=== PATIENT | male | born 1970 | race Hispanic/Latino ===

== ENCOUNTER 2018-11-09 09:20 | Emergency (ER) | payer OTHER ==
[2018-11-09] MEDS ORDERED: MECLIZINE HCL 12.5 MG TAB ONE (10:05)
[2018-11-09] MEDS ORDERED: NA CHLORIDE 0.9% 1,000 ML ONE (10:05)
--- NOTE | 2018-11-09 10:05 | RAD REPORT ---
EXAM DESCRIPTION: CT - Head Brain Wo Cont - 11/09/2018 9:53 am CLINICAL HISTORY: headache, dizziness Headache, drowsiness COMPARISON: No comparisons TECHNIQUE: All CT scans are performed using dose optimization technique as appropriate and may inclu de automated exposure control or mA/KV adjustment according to patient size. FINDINGS: No intracranial hemorrhage, hydrocephalus or extra-axial fluid collection.No areas of brai n edema or evidence of midline shift. The paranasal sinuses and mastoids are clear. The calvarium is intact. IMPRESSION: No acute intracranial abnormality.
[2018-11-09 10:18] LABS: Absolute Lymphocytes (CBC) 1.4 K/uL (0.7-4.9); Absolute Monocytes 0.5 K/uL (0.1-1.3); Absolute Neutrophil 3.7 K/uL (1.8-8.0); Basophils % 1.1 % (0-1.3); Hematocrit 41.1 % (39.6-49.0); Lymphocytes % 24.7 % (15.3-44.8); MPV 9.3 fL (7.6-11.3); Monocytes % 8.9 % (3.3-12.3); RBC Red Blood Cell Count 4.63 M/uL (4.33-5.43)
[2018-11-09 10:24] LABS: BUN Blood Urea Nitrogen 18 mg/dL (7-18); Bicarbonate 32 mmol/L (21-32); Creatine Phosphokinase 753 U/L (39-308); Glucose Level 87 mg/dL (74-106); Potassium 3.8 mmol/L (3.5-5.1); Sodium Level 144 mmol/L (136-145); Troponin (Emerg Dept Use Only) < 0.02 ng/mL (0.0-0.045)
--- NOTE | 2018-11-09 10:32 | EDPHYS ---
Physician Documentation [facility] Name: Caleb Schmidt Age: 48 yrs Sex: Male : 1970 Arrival Date: 11/09/2018 Time: 09:23 Bed 18 Private MD: ED Physician Jose Mcghee HPI: 11/09 10:02 This 48 yrs old Male presents to ER via Ambulatory with complaints of rn Lightheadedness. 10:02 The patient presents with dizziness. Onset: The symptoms/episode began/occurred 3 rn day(s) ago. Modifying factors: The symptoms are alleviated by nothing, the symptoms are aggravated by changing position. Severity of symptoms: At their worst the symptoms were moderate in the emergency department the symptoms have improved. The patient has not experienced similar symptoms in the past. Reports 3 days of intermittent dizziness, worse with trying to stand up or change position, no fever/head injury, + assoc headache, . Historical: - Allergies: 09:49 No Known Allergies; sv - PMHx: 09:49 None; sv - PSHx: 09:49 None; sv - Immunization history:: Adult Immunizations up to date. - Ebola Screening: : No symptoms or risks identified at this time. - Family history:: not pertinent. - Social history:: Smoking status: Patient/guardian denies using tobacco. - Hospitalizations: : No recent hospitalization is reported. ROS: 10:02 Constitutional: Negative for fever, chills, and weight loss, Eyes: Negative for injury, rn pain, redness, and discharge, ENT: Negative for injury, pain, and discharge, Neck: Negative for injury, pain, and swelling, Cardiovascular: Negative for chest pain, palpitations, and edema, Respiratory: Negative for shortness of breath, cough, wheezing, and pleuritic chest pain, Abdomen/GI: Negative for abdominal pain, diarrhea, and constipation, MS/Extremity: Negative for injury and deformity, Skin: Negative for injury, rash, and discoloration, Neuro: Negative for weakness, numbness, tingling, and seizure. Exam: 10:02 Constitutional: This is a well developed, well nourished patient who is awake, alert, rn and in no acute distress. Head/Face: Normocephalic, atraumatic. Eyes: Pupils equal round and reactive to light, extra-ocular motions intact. Lids and lashes normal. Conjunctiva and sclera are non-icteric and not injected. Cornea within normal limits. Periorbital areas with no swelling, redness, or edema. Neck: Trachea midline, no thyromegaly or masses palpated, and no cervical lymphadenopathy. Supple, full range of motion without nuchal rigidity, or vertebral point tenderness. No Meningismus. Cardiovascular: Regular rate and rhythm. No pulse deficits. Respiratory: Lungs have equal breath sounds bilaterally, clear to auscultation. No increased work of breathing, no retractions or nasal flaring. Abdomen/GI: soft, non-tender Skin: Warm, dry with normal turgor. Normal color with no rashes, no lesions, and no evidence of cellulitis. MS/ Extremity: Pulses equal, no cyanosis. Neurovascular intact. Full, normal range of motion. Equal circumference. Neuro: Awake and alert, GCS 15, oriented to person, place, time, and situation. Cranial nerves II-XII grossly intact. Motor strength 5/5 in all extremities. Sensory grossly intact. Cerebellar exam normal. Normal gait. 10:30 ECG was reviewed by the Attending Physician. rn Vital Signs: 09:49 BP 133 / 95; Pulse 83; Resp 18; Temp 98.7; Pulse Ox 99% ; Pain 0/10; sv 10:13 BP 125 / 89; Pulse 77; Resp 18; Pulse Ox 99% ; sv MDM: 09:31 Patient medically screened. rn 10:31 Differential diagnosis: cardiac arrhythmia, generalized weakness, idiopathic dizziness, rn near-syncope, vertigo. Data reviewed: vital signs, nurses notes, lab test result(s), EKG, radiologic studies, CT scan, and as a result, I will discharge patient. Counseling: I had a detailed discussion with the patient and/or guardian regarding: the historical points, exam findings, and any diagnostic results supporting the discharge/admit diagnosis, lab results, radiology results, the need for outpatient follow up, to return to the emergency department if symptoms worsen or persist or if there are any questions or concerns that arise at home. Response to treatment: the patient's symptoms have resolved after treatment, the patient's condition has returned to base line, the patient is now symptom free, and as a result, I will discharge patient. Special discussion: I discussed with the patient/guardian in detail that at this point there is no indication for admission to the hospital. It is understood, however, that if the symptoms persist or worsen the patient needs to return immediately for re-evaluation. Based on the history and exam findings, there is no indication for further emergent testing or inpatient evaluation. I discussed with the patient/guardian the need to see the kettle chipper for further evaluation of the symptoms. I discussed with the patient/guardian the need to see the neurologist for further evaluation of the symptoms. I discussed with the patient/guardian the need to see the primary care provider for further evaluation of the symptoms. 11/09 09:40 Order name: Basic Metabolic Panel; Complete Time: 10:11/09 09:40 Order name: CBC with Diff; Complete Time: :11/09 09:40 Order name: CT Head Brain wo Cont; Complete Time: :11/09 09:40 Order name: CPK; Complete Time: :11/09 09:40 Order name: Troponin (emerg Dept Use Only); Complete Time: :11/09 09:40 Order name: EKG; Complete Time: 09:41 11/09 09:40 Order name: Cardiac monitoring; Complete Time: 10:39 11/09 09:40 Order name: EKG - Nurse/Tech; Complete Time: 10:39 11/09 09:40 Order name: IV Saline Lock; Complete Time: :48 11/09 09:40 Order name: Labs collected and sent; Complete Time: :48 11/09 09:40 Order name: O2 Per Protocol; Complete Time: :48 11/09 09:40 Order name: O2 Sat Monitoring; Complete Time: 09:48 rn EC:30 Rate is 76 beats/min. Rhythm is regular. QRS [place] is Normal. NE interval is normal. QRS rn interval is normal. QT interval is normal. No Q waves. T waves are Normal. No ST changes noted. Clinical impression: Normal ECG. Interpreted by me. Administered Medications: 10:00 Drug: NS 0.9% 1000 ml Route: IV; Rate: 1000 ml; Site: right antecubital; sv 10:39 Follow up: Response: No adverse reaction; IV Status: Completed infusion; IV Intake: sv 1000ml 10:00 Drug: Meclizine 50 mg Route: PO; sv 10:39 Follow up: Response: No adverse reaction sv Disposition: 11/09/18 10:31 Discharged to Home. Impression: Vertigo. - Condition is Stable. - Discharge Instructions: Vertigo. - Prescriptions for Meclizine 25 mg Oral Tablet - take 1 tablet by ORAL route every 8 hours As needed; 30 tablet. - Medication Reconciliation Form, Thank You Letter, Antibiotic Education, Prescription Opioid Use form. - Follow up: Private Physician; When: As needed; Reason: Recheck today's complaints, Re-evaluation by your physician. - Problem is new. - Symptoms have improved. Signatures: Dispatcher [employer] EDMS Prisca Sanz RN RN sv Jose Mcghee MD MD rn post partum: (The following items were deleted from the chart) 10:46 10:31 11/09/2018 10:31 Discharged to Home. Impression: Vertigo. Condition is Stable. sv Forms are Medication Reconciliation Form, Thank You Letter, Antibiotic Education, Prescription Opioid Use. Follow up: Private Physician; When: As needed; Reason: Recheck today's complaints, Re-evaluation by your physician. Problem is new. Symptoms have improved. rn
--- NOTE | 2018-11-09 10:32 | ER ---
Nurse's Notes [facility] Name: Caleb Schmidt Age: 48 yrs Sex: Male : 1970 Arrival Date: 11/09/2018 Time: 09:23 Bed 18 Private MD: Diagnosis: Vertigo Presentation: 11/09 09:40 Presenting complaint: Patient states: last few days pt has been having lightheadedness sv worse with movement, right sided head pain, right ear pain. Pt recently started taking a preworkout drink. Denies n/v/d/fever/blurry vision/chest pain. Transition of care: patient was not received from another setting of care. Onset of symptoms was November 07, 2018. Risk Assessment: Do you want to hurt yourself or someone else? Patient reports no desire to harm self or others. Initial Sepsis Screen: Does the patient meet any 2 criteria? No. Patient's initial sepsis screen is negative. Does the patient have a suspected source of infection? No. Patient's initial sepsis screen is negative. Care prior to arrival: None. 09:40 Method Of Arrival: Ambulatory sv 09:40 Acuity: SHIKHA 3 sv Triage Assessment: 09:40 General: Appears in no apparent distress. comfortable, well groomed, well developed, sv Behavior is calm, cooperative, appropriate for age. Pain: Denies pain. Neuro: Level of Consciousness is awake, alert, obeys commands, Oriented to person, place, time, situation, Delivery Engineer are equal bilaterally Moves all extremities. Full function Gait is steady, Speech is normal, Reports dizziness, Denies blurred vision numbness. Respiratory: Airway is patent Respiratory effort is even, unlabored, Respiratory pattern is regular, symmetrical. Derm: Skin is pink, warm \T\ dry. Historical: - Allergies: 09:49 No Known Allergies; sv - PMHx: 09:49 None; sv - PSHx: 09:49 None; sv - Immunization history:: Adult Immunizations up to date. - Ebola Screening: : No symptoms or risks identified at this time. - Family history:: not pertinent. - Social history:: Smoking status: Patient/guardian denies using tobacco. - Hospitalizations: : No recent hospitalization is reported. Screenin:40 Abuse screen: Denies threats or abuse. Denies injuries from another. Nutritional sv screening: No deficits noted. Tuberculosis screening: No symptoms or risk factors identified. Fall Risk None identified. Assessment: 09:52 Reassessment: Patient appears in no apparent distress at this time. No changes from sv previously documented assessment. 10:46 Reassessment: Patient appears in no apparent distress at this time. No changes from sv previously documented assessment. Patient and/or family updated on plan of care and expected duration. Pain level reassessed. Patient is alert, oriented x 3, equal unlabored respirations, skin warm/dry/pink. Vital Signs: 09:49 BP 133 / 95; Pulse 83; Resp 18; Temp 98.7; Pulse Ox 99% ; Pain 0/10; sv 10:13 BP 125 / 89; Pulse 77; Resp 18; Pulse Ox 99% ; sv ED Course: 09:23 Patient arrived in ED. sb2 09:31 Jose Mcghee MD is Attending Physician. rn 09:39 Prisca Sanz RN is Primary Nurse. sv 09:40 Arm band placed on. sv 09:40 Patient has correct armband on for positive identification. Bed in low position. Call sv light in reach. Adult w/ patient. Pulse ox on. NIBP on. Door closed. 09:42 Triage completed. sv 09:45 Initial lab(s) drawn, by tn, sent to lab. Inserted saline lock: 20 gauge in right sv antecubital area, using aseptic technique. Blood collected. Flushed right antecubital with 5 ml normal saline. 09:[address] via wheelchair. sv 09:53 CT completed. Patient tolerated procedure well. Patient moved back from CT. vr 09:55 CT Head Brain wo Cont In Process Unspecified. EDMS 10:06 EKG done, by film laboratory technician. reviewed by Jose Mcghee MD. at1 10:46 No provider procedures requiring assistance completed. IV discontinued, intact, sv bleeding controlled, No redness/swelling at site. Pressure dressing applied. Administered Medications: 10:00 Drug: NS 0.9% 1000 ml Route: IV; Rate: 1000 ml; Site: right antecubital; sv 10:39 Follow up: Response: No adverse reaction; IV Status: Completed infusion; IV Intake: sv 1000ml 10:00 Drug: Meclizine 50 mg Route: PO; sv 10:39 Follow up: Response: No adverse reaction sv Intake: 10:39 IV: 1000ml; Total: 1000ml. sv Outcome: 10:31 Discharge ordered by . rn 10:46 Discharged to home ambulatory, with family. sv 10:46 Condition: stable 10:46 Discharge instructions given to patient, Instructed on discharge instructions, follow up and referral plans. medication usage, Demonstrated understanding of instructions, follow-up care, medications, Prescriptions given X 1. 10:46 Patient left the ED. sv Signatures: Dispatcher [employer] EDPrisca Lawson RN RN sv Nieto, Roman, MD MD rn Davis, Victoria vr Gonzales, Amanda, grinder tender EKG Tat1 Maxine Waters sb2 Corrections: (The following items were deleted from the chart) 09:51 09:40 Neuro: Level of Consciousness is awake, alert, obeys commands, Oriented to sv person, place, time, situation, Delivery Engineer are equal bilaterally Moves all extremities. Full function Gait is steady, Speech is normal, Reports dizziness, Denies blurred vision numbness sv
--- NOTE | 2018-11-09 16:57 | EKG ---
Test Date: 2018-10-09 Test Time: 10:00:08 Assembly Department Supervisor: DEANDRA MEASUREMENT RESULTS: Intervals: Rate: 76 [place]: 170 QRSD: 78 QT: 368 QTc: 414 [place]: P: 63 [place]: 170 QRS: 79 T: 46 INTERPRETIVE STATEMENTS: Normal sinus rhythm Normal ECG No previous ECG available for comparison Electronically Signed On 11-09-18 16:56:27 TUBE BUFFER by Cj Lamb
== END 2018-11-09 10:46 | disposition home or self-care (01) ==
LOC: ER 09:20
DX: R42 Dizziness and giddiness (principal)
CPT/HCPCS: 36415; 70450; 80048; 82550; 84484; 85025; 93005; 96360; 99284; J7030